=== PATIENT | female | born 1955 | race Caucasian/White ===

== ENCOUNTER 2019-07-24 20:26 | Emergency (ER) | payer BC ==
--- NOTE | 2019-07-24 20:45 | ED Physician Documentation ---
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 No: Nausea / vomiting, Fall, Head injury, Chest pain Contributing factors: negative: Anticoagulated, Vascular dz, Atrial fibrillation, Prosthetic heart valve Baseline status: positive: A&OX3, ambulatory, indep Similar symptoms before: Has not had sx before Recently seen: Not recently seen - Additional information Additional information: patient was involved in long discussion with her daughter and ; patient says it was a distressing conversation and it lasted nearly 45 minutes. She then felt sense of general unease and stood up, told she wasn't feeling well. She had generalized weakness upon standing and ambulating, and says she appeared pale. He repeatedly asked her to sit down, which she did not do for several minutes. She tells me she felt nervous and agitated and this is why she was not sitting down when asked to do so. As her asked her questions, it became apparent that patient had forgotten nearly all of the 45 minute conversation that had just taken place. Her pallor and generalized weakness and unease resolved COLLECTIONS ATTORNEY and she arrives to ED asymptomatic except she still does not recall most of the conversation. Denies h/o similar symptoms. Review of Systems Constitutional: reports: Reviewed and negative Eyes: reports: Reviewed and negative Ears: reports: Reviewed and negative Nose: reports: Reviewed and negative Throat: reports: Reviewed and negative Cardiac: reports: Reviewed and negative Respiratory: reports: Reviewed and negative GI: reports: Reviewed and negative : denies: Dysuria, Frequency Skin: reports: Reviewed and negative Musculoskeletal: reports: Reviewed and negative Neurologic: reports: Generalized weakness, Altered mental status, Headache. denies: Focal weakness, Numbness, Difficulty speaking, Head injury, LOC PD PAST MEDICAL HISTORY - Past Medical History Past Medical History: Yes Endocrine/Autoimmune: HyPOthyroidism - Past Surgical History Past Surgical History: No - Present Medications Home Medications: Ambulatory Orders Medication Instructions Recorded Confirmed FLUoxetine [PROzac] 10 mg PO DAILY 08/13/13 08/13/13 Levothyroxine [Synthroid] 75 mcg PO QDAC 08/13/13 08/13/13 Meclizine [Antivert] 25 - 50 mg PO Q6H PRN #30 tablet 08/13/13 - Allergies Allergies/Adverse Reactions: Allergies Allergy/AdvReac Type Severity Reaction Status Date / Time NSAIDS (Non-Steroidal Allergy Unknown Unknown Verified 08/13/13 14:05 Anti-Inflamma - Living Situation Living Situation: reports: With spouse/s.o. Living Arrangement: reports: At home - Social History Does the pt smoke?: No Smoking Status: Never smoker PD ED PE NORMAL - Vitals Vital signs reviewed: Yes - General General: Alert and oriented X 3, No acute distress, Well developed/nourished - HEENT HEENT: PERRL, EOMI, Moist mucous membranes - Neck Neck: Supple, no meningeal sign - Cardiac Cardiac: RRR, No murmur, No gallop, No rub - Respiratory Respiratory: No respiratory distress, Clear bilaterally - Abdomen Abdomen: Soft, Non tender - Derm Derm: Normal color, Warm and dry - Neuro Neuro: Alert and oriented X 3, ostomy rn 2-12 intact, No motor deficit, No sensory deficit, Normal speech Eye Opening: Spontaneous Motor: Obeys Commands Verbal: Oriented GCS Score: 15 - Psych Psych: Normal mood, Normal affect NIHSS - Time Time: 21:40 Results - Vitals Vitals: Vital Signs - 24 hr 07/24/19 07/24/19 07/24/19 20:30 21:14 21:27 Temperature 36.1 C L Heart Rate 78 75 Respiratory 18 16 16 Rate Blood Pressure 147/96 H 141/90 H O2 Saturation 98 98 07/24/19 07/24/19 07/24/19 21:45 22:27 22:40 Temperature Heart Rate 66 70 Respiratory 18 18 17 Rate Blood Pressure 134/89 H 132/87 H O2 Saturation 96 97 07/24/19 23:14 Temperature Heart Rate 63 Respiratory 16 Rate Blood Pressure 117/87 H O2 Saturation 97 Oxygen O2 Source Room air - EKG (time done) No standard instances Rate: Rate (enter#) (75) Rhythm: NSR [place]: Normal Intervals: Normal [place] QRS: Normal Ischemia: Normal ST segments, T wave inversion (V2-V4) - Labs Labs: Laboratory Tests 12/07/24/19 07/24/19 21:13 21:13 21:13 WBC 6.5 RBC 3.99 L Hgb 12.5 Hct 38.2 MCV 95.7 MCH 31.3 H MCHC 32.7 RDW 13.0 Plt Count 255 MPV 9.5 Neut # (Auto) 3.6 Lymph # (Auto) 2.4 [place] # (Auto) 0.4 Eos # (Auto) 0.0 Baso # (Auto) 0.0 Absolute Nucleated RBC 0.00 Nucleated RBC % 0.0 Sodium 140 Potassium 3.6 Chloride 106 Carbon Dioxide 25 Anion Gap 9.0 BUN 24 H Creatinine 0.7 Estimated GFR (MDRD) 85 L Glucose 110 H Calcium 8.9 Total Bilirubin 0.6 AST 22 ALT 18 Alkaline Phosphatase 60 Troponin I High Sens 2.9 Total Protein 7.0 Albumin 4.2 Globulin 2.8 Albumin/Globulin Ratio 1.5 Lipase 38 - Rads (name of study) CT head Radiology: Prelim report reviewed, See rad report PD MEDICAL DECISION MAKING - ED course Complexity details: reviewed results, re-evaluated patient, considered differential, d/w patient, d/w family
[2019-07-24 21:21] LABS: BASOPHILS % (AUTO) 0.5 %; EOSINOPHILS % (AUTO) 0.6 %; HGB - HEMOGLOBIN 12.5 g/dL (12.0-16.0); LYMPHOCYTES # (AUTO) 2.4 10^3/uL (1.5-3.5); MEAN CORPUSCULAR HEMOGLOBIN 31.3 pg (27.0-31.0); MEAN CORPUSCULAR HGB CONC 32.7 g/dL (32.0-36.0); MEAN CORPUSCULAR VOLUME 95.7 fL (81.0-99.0); MEAN PLATELET VOLUME 9.5 fL (7.9-10.8); MONOCYTES # (AUTO) 0.4 10^3/uL (0.0-1.0); MONOCYTES % (AUTO) 5.9 %; NEUTROPHILS # (AUTO) 3.6 10^3/uL (1.5-6.6); NEUTROPHILS % (AUTO) 55.8 %; PLT - PLATELET COUNT 255 10^3/uL (130-450); RED BLOOD COUNT 3.99 10^6/uL (4.20-5.40); WHITE BLOOD COUNT 6.5 x10^3/uL (4.8-10.8)
[2019-07-24 21:33] LABS: ALBUMIN 4.2 g/dL (3.2-5.5); ALBUMIN/GLOBULIN RATIO 1.5 (1.0-2.2); BILIRUBIN,TOTAL 0.6 mg/dL (0.2-1.0); CALCIUM 8.9 mg/dL (8.5-10.3); CREATININE 0.7 mg/dL (0.4-1.0)
--- NOTE | 2019-07-24 21:42 | XRAY Report ---
Reason: AMS Procedure Date: 07/24/2019 Accession Number: [id number] / [id number] Procedure: XR - Chest 2 View X-Ray CPT Code: 26641 Final Report FULL RESULT: EXAM: CHEST RADIOGRAPHY EXAM DATE: 07/24/2019 09:28 PM. CLINICAL HISTORY: AMS. COMPARISON: None. TECHNIQUE: 2 views. FINDINGS: Lungs/Pleura: No focal opacities evident. No pleural effusion. No pneumothorax. Normal volumes. There is elevation of the right hemidiaphragm compared to the left. Mediastinum: Heart and mediastinal contours are unremarkable. Other: None. IMPRESSION: No acute infiltrates. RADIA
--- NOTE | 2019-07-24 23:09 | CT Report ---
Reason: AMS Procedure Date: 07/24/2019 Accession Number: [id number] / [id number] Procedure: CT - HEAD WO CPT Code: Final Report FULL RESULT: EXAM: CT HEAD EXAM DATE: 07/24/2019 10:45 PM. CLINICAL HISTORY: Acute mental status changes. Memory loss. COMPARISON: None. TECHNIQUE: Multiaxial CT images were obtained from the foramen magnum to the vertex. Reformats: Sagittal and coronal. IV contrast: None. In accordance with CT protocol optimization, one or more of the following dose reduction techniques were utilized for this exam: automated exposure control, adjustment of mA and/or KV based on patient size, or use of iterative reconstructive technique. FINDINGS: Parenchyma: No intraparenchymal hemorrhage. No evidence of mass, midline shift, or CT findings of infarction. Foreman-white differentiation is distinct. Extraaxial Spaces: Normal for age. No subdural or epidural collections identified. Ventricles: Normal in size and position. Sinuses and Orbits: Imaged paranasal sinuses, orbits, and mastoids show no significant abnormality. Bones: No evidence of fracture or calvarial defect. Other: None. IMPRESSION: Normal head CT. RADIA
[2019-07-24 23:15] VITALS: BP 117/87
--- NOTE | 2019-07-24 23:41 | ED Physician Documentation ---
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 No: Fever, Headache, Stiff neck, Dyspnea, Cough, NVD, Urinary sx, Focal weakness, Seizure activity, Syncope Contributing factors: No: Diabetic, New medication, Recent injury, Intoxicated [place] status: Alert and oriented X 3, Ambulatory, Independent Similar symptoms before: Has not had sx before Recently seen: Not recently seen - Additional information Additional information: patient was involved in long discussion with her daughter and ; patient says it was a distressing conversation and it lasted nearly 45 minutes. She then felt sense of general unease and stood up, told she wasn't feeling well. She had generalized weakness upon standing and ambulating, and says she appeared pale. He repeatedly asked her to sit down, which she did not do for several minutes. She tells me she felt nervous and agitated and this is why she was not sitting down when asked to do so. As her asked her questions, it became apparent that patient had forgotten nearly all of the 45 minute c onversation that had just taken place. Her pallor and generalized weakness and unease resolved CRYPTOGRAPHER and she arrives to ED asymptomatic except she still does not recall most of the conversation. Denies h/o similar symptoms. Review of Systems Constitutional: reports: Reviewed and negative Eyes: reports: Reviewed and negative Cardiac: reports: Reviewed and negative Respiratory: reports: Reviewed and negative GI: reports: Reviewed and negative Musculoskeletal: denies: Neck pain, Back pain Neurologic: reports: Generalized weakness (resolved CRYPTOGRAPHER), Altered mental status, Headache (resolved CRYPTOGRAPHER). denies: Focal weakness, Numbness PD PAST MEDICAL HISTORY - Past Medical History Past Medical History: Yes Cardiovascular: None Respiratory: None Neuro: None Endocrine/Autoimmune: HyPOthyroidism GI: None FACILITY MECHANIC: None : None HEENT: None Psych: Anxiety Musculoskeletal: None Derm: None - Past Surgical History Past Surgical History: No /FACILITY MECHANIC: Breast implants, Other - Present Medications Home Medications: Ambulatory Orders Medication Instructions Recorded Confirmed FLUoxetine [PROzac] 10 mg PO DAILY 01/02/14 01/02/14 Levothyroxine [Synthroid] 75 mcg PO QDAC 08/13/13 08/13/13 Meclizine [Antivert] 25 - 50 mg PO Q6H PRN #30 tablet 08/13/13 - Allergies Allergies/Adverse Reactions: Allergies Allergy/AdvReac Type Severity Reaction Status Date / Time NSAIDS (Non-Steroidal Allergy Unknown Unknown Verified 08/13/13 14:05 Anti-Inflamma - Social History Does the pt smoke?: No Smoking Status: Never smoker Does the pt drink ETOH?: No Does the pt have substance abuse?: No - Immunizations Immunizations are current?: No - POLST Patient has POLST: No PD ED PE NORMAL - Vitals Vital signs reviewed: Yes - General General: Alert and oriented X 3, No acute distress, Well developed/nourished - HEENT HEENT: PERRL, EOMI, Moist mucous membranes - Neck Neck: Supple, no meningeal sign - Cardiac Cardiac: RRR, No murmur, No gallop, No rub - Respiratory Respiratory: No respiratory distress, Clear bilaterally - Abdomen Abdomen: Soft, Non tender - Derm Derm: Normal color, Warm and dry - Neuro Neuro: Alert and oriented X 3, environmental remediation specialist 2-12 intact, No motor deficit, No sensory deficit, Normal speech Eye Opening: Spontaneous Motor: Obeys Commands Verbal: Oriented GCS Score: 15 - Psych Psych: Normal mood, Normal affect Results - Vitals Vitals: Vital Signs - 24 hr 07/24/19 07/24/19 07/24/19 20:30 21:14 21:27 Temperature 36.1 C L Heart Rate 78 75 Respiratory 18 16 16 Rate Blood Pressure 147/96 H 141/90 H O2 Saturation 98 98 07/24/19 07/24/19 07/24/19 21:45 22:27 22:40 Temperature Heart Rate 66 70 Respiratory 18 18 17 Rate Blood Pressure 134/89 H 132/87 H O2 Saturation 96 97 07/24/19 23:14 Temperature Heart Rate 63 Respiratory 16 Rate Blood Pressure 117/87 H O2 Saturation 97 Oxygen O2 Source Room air - EKG (time done) No standard instances Rate: Rate (enter#) (75) Rhythm: NSR [place]: Other (borderline LAD) Intervals: Normal [place] QRS: Normal Ischemia: Normal ST segments, T wave inversion (V2-V4) - Labs Labs: Laboratory Tests 07/24/19 07/24/19 07/24/19 21:13 21:13 21:13 WBC 6.5 RBC 3.99 L Hgb 12.5 Hct 38.2 MCV 95.7 MCH 31.3 H MCHC 32.7 RDW 13.0 Plt Count 255 MPV 9.5 Neut # (Auto) 3.6 Lymph # (Auto) 2.4 [place] # (Auto) 0.4 Eos # (Auto) 0.0 Baso # (Auto) 0.0 Absolute Nucleated RBC 0.00 Nucleated RBC % 0.0 Sodium 140 Potassium 3.6 Chloride 106 Carbon Dioxide 25 Anion Gap 9.0 BUN 24 H Creatinine 0.7 Estimated GFR (MDRD) 85 L Glucose 110 H Calcium 8.9 Total Bilirubin 0.6 AST 22 ALT 18 Alkaline Phosphatase 60 Troponin I High Sens 2.9 Total Protein 7.0 Albumin 4.2 Globulin 2.8 Albumin/Globulin Ratio 1.5 Lipase 38 - Rads (name of study) CT head Radiology: Prelim report reviewed, See rad report PD MEDICAL DECISION MAKING - ED course Complexity details: reviewed results, re-evaluated patient, considered differ ential, d/w patient, d/w family Departure - Departure Disposition: 01 Home, Self Care Clinical Impression: Transient global amnesia Condition: Good Instructions: ED Confusion Follow-Up: Cornel Enrique MD [Primary Care Provider] - Within 1 week Comments: As discussed, your description of events is most suggestive of transient global amnesia. Discharge Date/Time: 07/24/19 23:48
== END 2019-07-24 23:48 | disposition home or self-care (01) ==
LOC: ED 20:26
DX: G45.4 Transient global amnesia (principal)
CPT/HCPCS: 36415; 70450; 71046; 80053; 83690; 84484; 85025; 93005; 99284

== ENCOUNTER 2022-02-23 08:43 | Outpatient (CLI) | payer BC, MEDICARE ==
[2022-02-23 15:10] LABS: BASOPHILS % (AUTO) 0.9 %; EOSINOPHILS % (AUTO) 0.9 %; HCT - HEMATOCRIT 40.6 % (37.0-47.0); HGB - HEMOGLOBIN 13.2 g/dL (12.0-16.0); LYMPHOCYTES # (AUTO) 1.5 10^3/uL (1.5-3.5); LYMPHOCYTES % (AUTO) 35.6 %; MEAN CORPUSCULAR HGB CONC 32.5 g/dL (32.0-36.0); MEAN CORPUSCULAR VOLUME 98.5 fL (81.0-99.0); MEAN PLATELET VOLUME 10.1 fL (7.9-10.8); MONOCYTES # (AUTO) 0.3 10^3/uL (0.0-1.0); MONOCYTES % (AUTO) 7.3 %; NEUTROPHILS # (AUTO) 2.4 10^3/uL (1.5-6.6); NEUTROPHILS % (AUTO) 55.1 %; PLT - PLATELET COUNT 269 10^3/uL (130-450); RED BLOOD COUNT 4.12 10^6/uL (4.20-5.40); RED CELL DISTRIBUTION WIDTH 13.7 % (12.0-15.0); WHITE BLOOD COUNT 4.3 x10^3/uL (4.8-10.8)
[2022-02-23 15:51] LABS: ALBUMIN 4.5 g/dL (3.2-5.5); ALBUMIN/GLOBULIN RATIO 1.7 (1.0-2.2); ALKALINE PHOSPHATASE 51 IU/L (42-121); ALT ALANINE AMINOTRANSFERASE 21 IU/L (10-60); AST ASPARTATE AMINOTRANSFERASE 24 IU/L (10-42); BILIRUBIN,TOTAL 0.7 mg/dL (0.2-1.0); BUN - BLOOD UREA NITROGEN 22 mg/dL (6-20); CALCIUM 9.6 mg/dL (8.5-10.3); CARBON DIOXIDE - CO2 28 mmol/L (21-32); CHLORIDE 105 mmol/L (101-111); CK- CREATINE KINASE 128 IU/L (22-269); CREATININE 0.8 mg/dL (0.4-1.0); GFR - MDRD 72 (>89); GLUCOSE 92 mg/dL (70-100); POTASSIUM 4.1 mmol/L (3.5-5.0); SODIUM 139 mmol/L (135-145); TOTAL PROTEIN 7.1 g/dL (6.7-8.2)
[2022-02-23 16:09] LABS: CRP - C-REACTIVE PROTEIN < 1.0 mg/dL (0-1.0)
[2022-02-23 21:29] LABS: RHEUMATOID FACTOR NEGATIVE (Negative)
[2022-02-24 18:09] LABS: ANTI-DNA (DS) AB QN <1 IU/mL (0-9); CENTROMERE B ANTIBODIES <0.2 AI (0.0-0.9); CHROMATIN ANTIBODIES <0.2 AI (0.0-0.9); JO-1 AB <0.2 AI (0.0-0.9); RIBOSOMAL P ANTIBODIES <0.2 AI (0.0-0.9); RNP ANTIBODIES <0.2 AI (0.0-0.9); SCLERODERMA-70 ANTIBODIES <0.2 AI (0.0-0.9); SJOGREN'S ANTI-SS-A <0.2 AI (0.0-0.9); SJOGREN'S ANTI-SS-B <0.2 AI (0.0-0.9); SMITH ANTIBODIES <0.2 AI (0.0-0.9); SMITH/RNP ANTIBODIES <0.2 AI (0.0-0.9)
[2022-02-27 00:07] LABS: CYCLIC CITRULLINATED PEP IGG/A 6 units (0-19)
== END 2022-02-23 08:44 | disposition home or self-care (01) ==
LOC: LAB.S 08:43
PROVIDERS: ATTEND Physical Medicine & Rehabilitation
DX: M25.50 Pain in unspecified joint (principal)
CPT/HCPCS: 36415; 80053; 81374; 82550; 85025; 85651; 86140; 86200; 86225; 86235; 86430

== ENCOUNTER 2023-02-07 11:29 | Outpatient (CLI) | payer MEDICARE, BC | END 2023-02-07 23:59 | disposition critical access hospital (66) | LOC: EMS 11:29 | DX: I47.1 Supraventricular tachycardia (principal) | CPT/HCPCS: A0425; A0429 ==

== ENCOUNTER 2023-02-07 12:08 | Emergency (ER) | payer MEDICARE, BC ==
--- NOTE | 2023-02-07 12:27 | ED Physician Documentation ---
History of Present Illness - Stated complaint Stated Complaint: DIZZY/CHEST PX - Chief complaint Chief Complaint: Cardiac - Additonal information Additional information: 67-year-old female is brought to the emergency department via EMS for evaluation of tachycardia. She states that at about 930 this morning she was driving her home who just had surgery when she began to notice a very rapid heart rate. She has had a history of this in the past and typically she is able to" breathe" her way through this but after about an hour and a half the symptoms did not sherry so she went to a local walk-in clinic. While there she had an EKG completed which per my interpretation shows a junctional tachycardia with RBB and a rate of 139. I did speak with the PA at the urgent care clinic who reports that he did a Valsalva maneuver which successfully converted her to a sinus rhythm. EMS was then summoned and she is transported to the emergency department. The patient reports that because of her palpitations she has worn a Holter monitor and been seen by a fruit or nut farmworker though this was now more than 3 or 4 years ago. At that time she states that coronary artery disease was ruled out and she was told that she did not have atrial fibrillation just occasional extra beats. At the time today of her symptoms she did have some chest pain with radiation to both shoulders and jaw and neck. When she converted she no longer has chest pain though the walk-in clinic provider did administer 325 mg of aspirin. Review of Systems Constitutional: reports: Reviewed and negative Cardiac: reports: Palpitations. denies: Pedal edema, Calf pain Respiratory: reports: Reviewed and negative GI: reports: Reviewed and negative : reports: Reviewed and negative Skin: reports: Reviewed and negative PD PAST MEDICAL HISTORY - Past Medical History Cardiovascular: None Respiratory: None Neuro: None Endocrine/Autoimmune: HyPOthyroidism GI: None PACKING LINE WORKER: None : None HEENT: None Psych: Anxiety Musculoskeletal: None Derm: None - Past Surgical History Past Surgical History: No /PACKING LINE WORKER: Breast implants, Other - Present Medications Home Medications: Ambulatory Orders Medication Instructions Recorded Confirmed FLUoxetine [PROzac] 10 mg PO DAILY 08/13/13 08/13/13 Levothyroxine [Synthroid] 75 mcg PO QDAC 08/13/13 08/13/13 Meclizine [Antivert] 25 - 50 mg PO Q6H PRN #30 tablet 08/13/13 - Allergies Allergies/Adverse Reactions: Allergies Allergy/AdvReac Type Severity Reaction Status Date / Time NSAIDS (Non-Steroidal Allergy Unknown Unknown Verified 02/07/23 12:14 Anti-Inflamma - Social History Does the pt smoke?: No Smoking Status: Never smoker Does the pt drink ETOH?: No Does the pt have substance abuse?: No - Immunizations Immunizations are current?: No - POLST Patient has POLST: No PD ED PE NORMAL - General General: Alert and oriented X 3, No acute distress - HEENT HEENT: PERRL - Cardiac Cardiac: RRR, No murmur, Strong equal pulses - Respiratory Respiratory: No respiratory distress, Clear bilaterally - Abdomen Abdomen: Normal bowel sounds, Soft - Back Back: No CVA TTP - Derm Derm: Normal color, Warm and dry, No rash - Extremities Extremities: No deformity - Neuro Neuro: Alert and oriented X 3, instructor decorating 2-12 intact Eye Opening: Spontaneous Motor: Obeys Commands Verbal: Oriented GCS Score: 15 Results - Vitals Vitals: Vital Signs - 24 hr 02/07/23 02/07/23 12:05 12:12 Temperature 36.8 C Heart Rate 88 Respiratory 18 12 Rate Blood Pressure 106/76 O2 Saturation 99 Oxygen O2 Source Room air - EKG (time done) 1230 EKG releavant findings:: EKG personally interpreted by author of this note. Relevant findings are: Rate: Rate (enter#) (79) Rhythm: NSR [place]: Normal QRS: Poor R wave progression Ischemia: Non specific changes Compare to prior EKG: Changed from prior EKG Computer interpretation: Agree with computer (EKG at walk-in clinic showed junctional tachycardia with a rate of 139 and right bundle branch block. Now sinus rhythm with some mild ST depressions and T wave inversions V1 through V5) - Labs Labs: Laboratory Tests 02/07/23 02/07/23 02/07/23 12:27 12:27 12:27 WBC 5.4 RBC 4.05 L Hgb 13.1 Hct 39.5 MCV 97.5 MCH 32.3 H MCHC 33.2 RDW 13.4 Plt Count 249 MPV 9.1 Neut # (Auto) 3.0 Lymph # (Auto) 2.0 [place] # (Auto) 0.4 Eos # (Auto) 0.0 Baso # (Auto) 0.0 Absolute Nucleated RBC 0.00 Nucleated RBC % 0.0 PT 11.9 INR 1.1 Sodium 140 Potassium 3.9 Chloride 108 Carbon Dioxide 26 Anion Gap 6.0 BUN 21 H Creatinine 0.8 Estimated GFR (MDRD) 72 L Glucose 91 Calcium 9.0 Total Bilirubin 0.5 AST 21 ALT 22 Alkaline Phosphatase 55 B-Natriuretic Peptide Total Protein 6.7 Albumin 4.0 Globulin 2.7 Albumin/Globulin Ratio 1.5 Lipase 34 TSH Free T4 02/07/23 02/07/23 12:27 12:27 WBC RBC Hgb Hct MCV MCH MCHC RDW Plt Count MPV Neut # (Auto) Lymph # (Auto) [place] # (Auto) Eos # (Auto) Baso # (Auto) Absolute Nucleated RBC Nucleated RBC % PT INR Sodium Potassium Chloride Carbon Dioxide Anion Gap BUN Creatinine Estimated GFR (MDRD) Glucose Calcium Total Bilirubin AST ALT Alkaline Phosphatase B-Natriuretic Peptide 32 Total Protein Albumin Globulin Albumin/Globulin Ratio Lipase TSH 1.97 Free T4 0.74 - Rads (name of study) cxr Relevant Findings:: Final report received (No acute cardiopulmonary findings) PD Medical Decision Making - ED course Complexity details: reviewed results, re-evaluated patient, considered differential, d/w patient ED course: 67-year-old female referred to the emergency department via EMS from a local walk-in clinic where she had presented earlier this morning after she had developed palpitations and tachycardia. While in the walk-in clinic initial EKG showed a junctional tachycardia with a rate of 140. At that time she was having chest pain. The walk-in clinic provider asked the patient to perform a Valsalva maneuver which abruptly ended the tachycardia resulting in a sinus rhythm with some mild ST depressions and T wave inversions in the anterior lateral leads. Presentation the emergency department she was alert well-appearing and free of chest pain. Her EKG was sinus rhythm, nonischemic on the monitor. History is not consistent with ACS nor congestive heart failure. I did evaluate a CBC, electrolytes troponin and BNP. Per my interpretation no acute worrisome findings. Troponin level was not elevated despite about 2-1/2 hours of sustained tachycardia. Chest x-ray was without acute focal findings suggest pneumonia, pleural effusion or pneumothorax. Patient did report that historically she has had bouts of tachycardia which she is able to breathe through. She is also been evaluated by [facility] fruit or nut farmworker about 4 years ago which found no evidence of coronary artery disease or ischemic heart disease and no sustained tachycardia on a Holter monitor. While here in the emergency department for the last hour or so she has remained on the monitor without any return of sustained tachycardia. She remains free of chest pain. At this time she is stable for discharge home. I am advising her to follow very closely with her fruit or nut farmworker as I think she would likely benefit from repeat Holter monitor. We discussed that should she have another run of t achycardia or palpitation she should reattempt the Valsalva maneuver but if that does not solve the problem she will return immediately to the emergency department. Departure - Departure Disposition: Home, Self Care Clinical Impression: Junctional tachycardia Condition: Stable Record reviewed to determine appropriate education?: Yes Instructions: ED Valsalva Maneuver Comments: Anjali suellen were sent to the emergency department from the walk-in clinic where you presented because you had several hours of tachycardia. The EKG completed at the walk-in clinic showed a junctional tachycardia with a heart rate of 139. The walk-in clinic providers asked you to perform a Valsalva maneuver which abruptly slowed your heart rate back into a sinus rhythm. Today in the emergency department your CBC, electrolytes troponin and thyroid testing were all essentially normal. Your chest x-ray was also normal. I recommend that you discuss very closely this ED visit with your primary care doctor as well as the fruit or nut farmworker that you were seen by several years ago. It may be important to repeat your Holter monitor testing and/or consider ischemic heart disease testing or another echocardiogram. If you have any further bouts of tachycardia, feeling lightheaded or dizzy attempting the Valsalva maneuver. If this does not improve your symptoms you are to return immediately to the ER. Return sooner if you have any fainting episodes sudden severe chest pain or shortness of air.
[2023-02-07 12:34] LABS: BASOPHILS % (AUTO) 0.4 %; EOSINOPHILS % (AUTO) 0.4 %; HCT - HEMATOCRIT 39.5 % (37.0-47.0); HGB - HEMOGLOBIN 13.1 g/dL (12.0-16.0); LYMPHOCYTES % (AUTO) 36.2 %; MEAN CORPUSCULAR HEMOGLOBIN 32.3 pg (27.0-31.0); MEAN CORPUSCULAR HGB CONC 33.2 g/dL (32.0-36.0); MEAN CORPUSCULAR VOLUME 97.5 fL (81.0-99.0); MEAN PLATELET VOLUME 9.1 fL (7.9-10.8); MONOCYTES # (AUTO) 0.4 10^3/uL (0.0-1.0); MONOCYTES % (AUTO) 6.8 %; PLT - PLATELET COUNT 249 10^3/uL (130-450); RED BLOOD COUNT 4.05 10^6/uL (4.20-5.40); RED CELL DISTRIBUTION WIDTH 13.4 % (12.0-15.0); WHITE BLOOD COUNT 5.4 x10^3/uL (4.8-10.8)
--- NOTE | 2023-02-07 12:35 | XRAY Report ---
PROCEDURE: Chest 1 View X-Ray INDICATIONS: Chest Pain TECHNIQUE: One view of the chest was acquired. COMPARISON: 07/24/2019. FINDINGS: Surgical changes and devices: None. Lungs and pleura: No pleural effusions or pneumothorax. Lungs are clear. Mediastinum: Mediastinal contours appear normal. Heart size is normal. Bones and chest wall: No suspicious bony lesions. Overlying soft tissues appear unremarkable. IMPRESSION: No acute cardiopulmonary process. Reviewed by: Teddy Ortez MD on 02/07/2023 12:34 PM PDT Approved by: Teddy Ortez MD on 02/07/2023 12:34 PM PDT Station ID: [id number]
[2023-02-07 12:42] LABS: INR 1.1 (0.8-1.2); PT - PROTHROMBIN TIME 11.9 secs (9.9-12.6)
[2023-02-07 12:46] LABS: ALBUMIN/GLOBULIN RATIO 1.5 (1.0-2.2); BILIRUBIN,TOTAL 0.5 mg/dL (0.2-1.0); CREATININE 0.8 mg/dL (0.4-1.0); POTASSIUM 3.9 mmol/L (3.5-5.0); TOTAL PROTEIN 6.7 g/dL (6.7-8.2)
[2023-02-07 13:05] LABS: THYROID STIMULATING HORMONE 1.97 uIU/mL (0.34-5.60)
[2023-02-07 13:07] LABS: FREE T4 (FREE THYROXINE) 0.74 ng/dL (0.58-1.64)
[2023-02-07] MEDS ORDERED: ATORVASTATIN 40 MG TABLET PO STA (15:45)
[2023-02-07] MEDS ORDERED: METOPROLOL SUCCINATE 25 MG TABLET PO STA (16:07)
[2023-02-07 16:18] VITALS: BP 112/68
[2023-02-08] MEDS ORDERED: METOPROLOL SUCCINATE 25 MG TABLET PO SCH (09:00)
== END 2023-02-07 16:30 | disposition home or self-care (01) ==
LOC: EDUNIT# → ED 12:08
DX: I47.1 Supraventricular tachycardia (principal); R74.8 Abnormal levels of other serum enzymes
CPT/HCPCS: 36415; 71045; 80053; 83690; 83880; 84439; 84443; 84484; 85025; 85610; 93005; 99284; A9270

== ENCOUNTER 2023-03-14 13:10 | Outpatient (CLI) | payer MEDICARE, BC ==
--- NOTE | 2023-03-15 10:10 | Mammography Report ---
BILATERAL DIGITAL SCREENING MAMMOGRAM 3D/2D: 03/14/2023 CLINICAL: Routine screening. Baseline exam. No prior exams were available for comparison. There are scattered areas of fibroglandular density in both breasts (category b / 25%-50% glandular t issue). No significant masses, calcifications, or other findings are seen in either breast. IMPRESSION: NEGATIVE There is no mammographic evidence of malignancy. A 1 year screening mammogram is recommended. Based on the Tyrer Cuzick model (a risk assessment model) the patients lifetime risk is 9.9% and her 10 year risk is 5.3%. According to the ACR, ACS, and NCCN guidelines, an annual breast MRI exam sumeet g with mammogram is recommended if the patients lifetime risk is 20% or greater. This exam was interpreted at Station ID: [id number]. NOTE: For mammograms, a report in lay terms will be sent to the patient. Approximately 15% of breast malignancies will not be visualized mammographically. In the management of a palpable breast mass, a negative mammogram must not discourage biopsy of a clinically suspicious lesion. Electronically Signed By: Oscar lo/tab:03/14/2023 23:29:20 letter sent: No_Letter ACR BI-RADS Category 1: Negative 3341F PARENCHYMAL PATTERN: (A) - The breast(s) demonstrate(s) scattered fibroglandular densities. BI-RADS CATEGORY: (1) - 1 Mammogram [id number] 1 year screening LATERALITY: (B)
== END 2023-03-14 13:11 | disposition home or self-care (01) ==
LOC: DI 13:10
PROVIDERS: ATTEND Nurse Practitioner Family
DX: Z12.31 Encounter for screening mammogram for malignant neoplasm of breast (principal)

== ENCOUNTER 2023-03-14 13:11 | Outpatient (CLI) | payer MEDICARE, BC ==
--- NOTE | 2023-03-14 14:23 | DEXA Report ---
PROCEDURE: Dexa Spine and/or Hip INDICATIONS: POST MENOPAUSAL TECHNIQUE: Dual energy x-ray absorptiometry (DXA) was performed on a [employer] System. Regions measur ed are the AP Spine, femoral neck, and if needed forearm. COMPARISON: None FINDINGS: Lumbar Spine: Bone Mineral Density 1.134 g/cm/cm,T score -0.4. Left Femoral Neck: Bone Mineral Density 0.832 g/cm/cm, T score -1.5. Left Hip: Bone Mineral Density 0.849 g/cm/cm,T score -1.3. (T score greater or equal to -1.0: NORMAL) (T score from -1.1 to -2.4: OSTEOPENIA) (T score less than or equal to -2.5 to: OSTEOPOROSIS) Impression: By WHO criteria, this patient has low bone density (osteopenia). Patients with diagnosis of osteoporosis or osteopenia should have regular bone mineral density assess ment. For those eligible for Medicare, routine testing is allowed once every 2 years. Testing frequ ency can be increased for patients who have rapidly progressing disease or for those who are receivin g medical therapy to restore bone mass. Reviewed by: Iggy Gomes MD on 03/14/2023 2:21 PM PDT Approved by: Iggy Gomes MD on 03/14/2023 2:21 PM PDT Station ID: [id number]
== END 2023-03-14 13:12 | disposition home or self-care (01) ==
LOC: DI 13:11
PROVIDERS: ATTEND Nurse Practitioner Family
DX: M85.89 Other specified disorders of bone density and structure, multiple sites (principal); Z78.0 Asymptomatic menopausal state

== ENCOUNTER 2024-01-27 10:09 | Outpatient (CLI) | payer MEDICARE, BC ==
[2024-01-27 14:56] LABS: BASOPHILS % (AUTO) 0.7 %; EOSINOPHILS % (AUTO) 0.9 %; HCT - HEMATOCRIT 41.3 % (37.0-47.0); HGB - HEMOGLOBIN 13.1 g/dL (12.0-16.0); LYMPHOCYTES # (AUTO) 1.7 10^3/uL (1.5-3.5); LYMPHOCYTES % (AUTO) 39.4 %; MEAN CORPUSCULAR HEMOGLOBIN 31.6 pg (27.0-31.0); MEAN CORPUSCULAR HGB CONC 31.7 g/dL (32.0-36.0); MEAN CORPUSCULAR VOLUME 99.8 fL (81.0-99.0); MONOCYTES # (AUTO) 0.3 10^3/uL (0.0-1.0); MONOCYTES % (AUTO) 7.6 %; NEUTROPHILS # (AUTO) 2.2 10^3/uL (1.5-6.6); NEUTROPHILS % (AUTO) 51.2 %; PLT - PLATELET COUNT 266 10^3/uL (130-450); RED BLOOD COUNT 4.14 10^6/uL (4.20-5.40); RED CELL DISTRIBUTION WIDTH 13.2 % (12.0-15.0); WHITE BLOOD COUNT 4.3 x10^3/uL (4.8-10.8)
[2024-01-27 15:48] LABS: THYROID STIMULATING HORMONE 1.46 uIU/mL (0.34-5.60)
[2024-01-27 16:00] LABS: ALBUMIN 4.5 g/dL (3.2-5.5); ALBUMIN/GLOBULIN RATIO 1.9 (1.0-2.2); ALKALINE PHOSPHATASE 56 IU/L (42-121); ALT ALANINE AMINOTRANSFERASE 21 IU/L (10-60); AST ASPARTATE AMINOTRANSFERASE 22 IU/L (10-42); BILIRUBIN,TOTAL 0.5 mg/dL (0.2-1.0); BUN - BLOOD UREA NITROGEN 18 mg/dL (6-20); CALCIUM 9.7 mg/dL (8.5-10.3); CARBON DIOXIDE - CO2 30 mmol/L (21-32); CHLORIDE 104 mmol/L (101-111); CHOL/HDL RATIO 2.5 (<4.4); CHOLESTEROL 200 mg/dL; CREATININE 0.8 mg/dL (0.6-1.3); GFR - MDRD 71 (>89); GLUCOSE 99 mg/dL (74-104); HDL CHOLESTEROL 80 mg/dL; LDL CHOLESTEROL,CALCULATED 98 mg/dL; LDL/HDL RATIO 1.2 (<4.4); POTASSIUM 4.2 mmol/L (3.5-4.5); SODIUM 138 mmol/L (135-145); TOTAL PROTEIN 6.9 g/dL (6.4-8.9); TRIGLYCERIDES 108 mg/dL (48-352); VLDL CHOLESTEROL 22 mg/dL
== END 2024-01-27 10:10 | disposition home or self-care (01) ==
LOC: LAB.S 10:09
PROVIDERS: ATTEND Physician Assistant
DX: E03.9 Hypothyroidism, unspecified (principal); Z11.59 Encounter for screening for other viral diseases; E78.5 Hyperlipidemia, unspecified
CPT/HCPCS: 36415; 80053; 80061; 83721; 84443; 85025; 86803